=== PATIENT | female | born 1960 | race Caucasian/White ===

== ENCOUNTER 2017-10-20 08:09 | Emergency (ER) | payer OTHER ==
[2017-10-20 08:19] VITALS: BP 156/88; PULSE 85; RESP 18; TEMP 97.4
[2017-10-20] MEDS ORDERED: IBUPROFEN 600 MG TAB PO STA (08:26)
--- NOTE | 2017-10-20 08:36 | ED ---
Fall HPI - General Chief Complaint: Fall Stated Complaint: Elbow injury-[facility] Time Seen by Provider: 10/20/17 08:21 Source: patient, RN notes reviewed Mode of arrival: ambulatory Limitations: no limitations - History of Present Illness Initial Comments: 57-year-old female presents emergency Department chief complaint left elbow injury. Patient states she works at [employer] and states that she was changing the trash when she took a step forward and lost her balance causing her to strike her left elbow into a sink. she's had no prior injuries denies any head injury no loss conscious. Patient states it hurts when she moves her left elbow and states that since she's been holding it still she feels some tingling in her fingers. She did apply some ice to it after the injury but was told not take any Tylenol or Motrin until she was evaluated. Patient states this injury happened 3 hours prior arrival. - Related Data Home Medications Medication Instructions Recorded Confirmed Naproxen Sodium [Aleve] 220 mg PO DAILY PRN 10/20/17 10/20/17 Previous Rx's Medication Instructions Recorded Acetaminophen-Codeine 300-30mg 1 tab PO Q4H PRN #20 tablet 10/20/17 [Tylenol #3] Ibuprofen [Motrin] 600 mg PO Q8HR PRN #30 tab 10/20/17 Allergies Allergy/AdvReac Type Severity Reaction Status Date / Time bacitracin Allergy Rash/Hives Verified 10/20/17 08:57 [From Neosporin ([id number])] bacitracin zinc Allergy Rash/Hives Verified 10/20/17 08:57 [From Neosporin ([id number])] neomycin sulfate Allergy Rash/Hives Verified 10/20/17 08:57 [From Neosporin ([id number])] polymyxin B Allergy Rash/Hives Verified 10/20/17 08:57 [From Neosporin ([id number])] Review of Systems ROS Statement: Those systems with pertinent positive or pertinent negative responses have been documented in the HPI. ROS Other: All systems not noted in ROS Statement are negative. Past Medical History Past Medical History: Osteoarthritis (OA), Thyroid Disorder Additional Past Medical History / Comment(s): "NO BM IN 4 DAYS, USUALLY GOES DAILY" History of Any Multi-Drug Resistant Organisms: None Reported Past Surgical History: Hysterectomy, Tonsillectomy Past Anesthesia/Blood Transfusion Reactions: No Reported Reaction Past Psychological History: No Psychological Hx Reported Smoking Status: Former smoker Past Alcohol Use History: Rare Past Drug Use History: None Reported - Past Family History Mother Family Medical History: Dementia Additional Family Medical History / Comment(s): GLAUCOMA Father Family Medical History: AFIB, Diabetes Mellitus, Myocardial Infarction (HI) General Exam Limitations: no limitations General appearance: alert, in no apparent distress Head exam: Present: atraumatic, normocephalic, normal inspection Neck exam: Present: normal inspection, full ROM. Absent: tenderness, meningismus, lymphadenopathy Respiratory exam: Present: normal lung sounds bilaterally. Absent: respiratory distress, wheezes, rales, rhonchi, stridor Cardiovascular Exam: Present: regular rate, normal rhythm, normal heart sounds. Absent: systolic murmur, diastolic murmur, rubs, gallop, clicks Extremities exam: Present: other (Left elbow there is no obvious injury or deformity, no notable swelling or erythema no ecchymosis patient is neurovascularly intact she does have full range of motion but has moderate discomfort) Skin exam: Present: warm, dry, intact, normal color. Absent: rash Course Vital Signs 10/20/17 08:16 Temperature 97.4 F L Pulse Rate 85 Respiratory 18 Rate Blood Pressure 156/88 O2 Sat by Pulse 99 Oximetry Medical Decision Making - Medical Decision Making 57-year-old female presented emergency department for left elbow injury. This a left elbow contusion x-rays reviewed no acute fracture no abnormal fat pad sign seen. Patient will be discharged advised light ice 20 minutes at time follow up with [facility] will be discharged with pain medication. Disposition Clinical Impression: Left elbow contusion Disposition: HOME SELF-CARE Condition: Stable Instructions: Contusion in Adults (ED) Additional Instructions: Please return to the Emergency Department if symptoms worsen or any other concerns. Prescriptions: Acetaminophen-Codeine 300-30mg [Tylenol #3] 1 tab PO Q4H PRN #20 tablet PRN Reason: pain Ibuprofen [Motrin] 600 mg PO Q8HR PRN #30 tab PRN Reason: Pain Referrals: Ramone Donahue DO [Primary Care Provider] - 1-2 days Time of Disposition: 09:04
--- NOTE | 2017-10-20 08:54 | XR ---
EXAMINATION TYPE: XR elbow complete LT DATE OF EXAM: 10/20/2017 CLINICAL HISTORY: Pain after injury today TECHNIQUE: Frontal, lateral and oblique images of the left elbow are obtained. COMPARISON: None FINDINGS: There is no acute fracture/dislocation evident in the left elbow. There is spurring at uln ohumeral articulation. There is spur from the medial epicondyle of distal humerus. No abnormal fat pa d signs are seen. The overlying soft tissue appears unremarkable. IMPRESSION: There is no acute fracture or dislocation in the left elbow.
== END 2017-10-20 09:14 | disposition home or self-care (01) ==
LOC: EC 08:09
DX: S50.02XA Contusion of left elbow, initial encounter (principal); Z88.1 Allergy status to other antibiotic agents; Z87.891 Personal history of nicotine dependence; W01.198A Fall on same level from slipping, tripping and stumbling with subsequent striking against other object, initial encounter; Y92.69 Other specified industrial and construction area as the place of occurrence of the external cause; Y93.89 Activity, other specified; Y99.0 Civilian activity done for income or pay
CPT/HCPCS: 99283

== ENCOUNTER → 2017-10-22 | Outpatient (CLI) | payer OTHER ==
--- NOTE | 2017-10-22 11:57 | XR ---
EXAMINATION TYPE: XR forearm LT DATE OF EXAM: 10/22/2017 CLINICAL HISTORY: Fall and left arm pain TECHNIQUE: Two views of the left forearm are obtained. COMPARISON: None. FINDINGS: There is no acute fracture or dislocation seen in the left radius or ulna. The left elbow and wrist joints appear within normal limits. There is focal soft tissue swelling of the dorsal medi al proximal forearm. No joint effusion IMPRESSION: 1. No acute fracture or dislocation seen in the left radius or ulna. 2. Focal soft tissue swelling of the dorsal medial proximal left forearm.
== END | disposition home or self-care (01) ==
LOC: RADXRMAIN 10:27
PROVIDERS: ATTEND Emergency Medicine
DX: M79.89 Other specified soft tissue disorders (principal)